=== PATIENT | male | born 1985 | race Caucasian/White ===

== ENCOUNTER 2017-01-26 14:05 | Emergency (ER) | payer BC ==
[~2017-01-26] VITALS: Ht 188 cm; Wt 81.5 kg
[2017-01-26 14:09] VITALS: BP 134/80
[2017-01-26] MEDS ORDERED: LIDOCAINE 1%, 20ML ONE (15:12)
[2017-01-26] MEDS ORDERED: LIDOCAINE 1%, 20ML SQ ONE (15:30)
== END 2017-01-26 16:22 | disposition home or self-care (01) ==
LOC: ED 16:19
DX: S61.211A Laceration without foreign body of left index finger without damage to nail, initial encounter (principal); W26.0XXA Contact with knife, initial encounter; Y93.89 Activity, other specified; Y99.8 Other external cause status; Y92.009 Unspecified place in unspecified non-institutional (private) residence as the place of occurrence of the external cause
CPT/HCPCS: 12002; 64400

== ENCOUNTER 2020-03-13 14:58 | Emergency (ER) | payer BC ==
[~2020-03-13] VITALS: Ht 188 cm; Wt 80.0 kg
[2020-03-13 15:01] VITALS: BP 134/91
[2020-03-13] MEDS ORDERED: FLUORESCEIN OPHTHALMIC 1 MG STRIP ONE (15:05)
[2020-03-13] MEDS ORDERED: PROPARACAINE OPHTH 0.5%, 15ML ONE (15:05)
[2020-03-13] MEDS ORDERED: LIDOCAINE 1%, 10ML INFIL ONE (15:30)
[2020-03-13] MEDS ORDERED: FLUORESCEIN OPHTHALMIC 1 MG STRIP EACHEYE ONE (15:30)
[2020-03-13] MEDS ORDERED: PROPARACAINE OPHTH 0.5%, 15ML EACHEYE ONE (15:30)
[2020-03-13] MEDS ORDERED: LIDOCAINE-MPF 1%, 5ML ONE (15:53)
--- NOTE | 2020-03-13 16:39 | NUR ---
Patient/Caregiver given discharge instructions and they have confirmed that they understand the instructions. Patient ambulatory with steady gait. PT LEFT WITH ALL PERSONAL BELONGINGS.
== END 2020-03-13 16:40 | disposition home or self-care (01) ==
LOC: ED 16:33
DX: S01.111A Laceration without foreign body of right eyelid and periocular area, initial encounter (principal); X58.XXXA Exposure to other specified factors, initial encounter; Y93.89 Activity, other specified; Y92.830 Public park as the place of occurrence of the external cause; Y99.8 Other external cause status
CPT/HCPCS: 12051; 99284